=== PATIENT | female | born 1945 | race Caucasian/White ===

== ENCOUNTER 2019-10-29 19:40 | Emergency (ER) | payer MEDICARE, OTHER ==
[~2019-10-29] VITALS: Ht 165.1 cm; Wt 63.5 kg
[2019-10-29] MEDS ORDERED: KETOROLAC TROMETHAMINE INJ 30 MG/ML VIAL IV ONE (20:00)
[2019-10-29] MEDS ORDERED: PROPOFOL 200 MG/20 ML VIAL IV ONE (20:00)
--- NOTE | 2019-10-29 20:00 | NUR ---
PT BIB [facility] RT SHOULDER PAIN POSS DISLOCATION S/P FALL AT 7PM, -LOC, +ABRASION ON NOSE TO ER BED 4, LINE STARTED, PT ON O2, VSS
[2019-10-29] MEDS ORDERED: PROPOFOL 20 ML IV ONE (20:02)
[2019-10-29] MEDS ORDERED: KETOROLAC TROMETHAMINE INJ 30 MG/ML VIAL ONE (20:02)
--- NOTE | 2019-10-29 20:17 | NUR ---
TECH AT BEDSIDE FOR XRAY
--- NOTE | 2019-10-29 21:27 | NUR ---
kiet jones reduction done at bedside by , 60mg of propofol, awaiting repeat xray
[2019-10-29] MEDS ORDERED: TDAP [DIPH/PERTUSSIS/TET] 0.5 ML VIAL IM ONE ×2 (21:58→22:00)
[2019-10-29 22:07] VITALS: BP 173/91
--- NOTE | 2019-10-29 22:07 | NUR ---
IV removed. Catheter intact and site benign. Pressure and 4x4 applied to site. No bleeding noted.Patient discharged to home in stable condition. Written and verbal after care instructions given. Patient verbalizes understanding of instruction.
== END 2019-10-29 22:08 | disposition home or self-care (01) ==
LOC: ER 19:40
DX: S43.084A Other dislocation of right shoulder joint, initial encounter (principal); S43.014A Anterior dislocation of right humerus, initial encounter; W18.39XA Other fall on same level, initial encounter; Y93.89 Activity, other specified; Y92.89 Other specified places as the place of occurrence of the external cause; Y99.8 Other external cause status
CPT/HCPCS: 23650; 73030 ×2; 90471; 90715; 96374; 99152; 99285; J1885; J2704; J7030; G0500